=== PATIENT | female | born 2000 | race Hispanic/Latino ===

== ENCOUNTER 2019-09-20 06:37 | Day surgery (SDC) | payer MEDICAID ==
[~2019-09-20] VITALS: Ht 165.1 cm; Wt 74.8 kg
[2019-09-20] VITALS (9 sets, daily range): BP systolic 112–157; BP diastolic 62–107
[~2019-09-20 06:37] MED LIST: LISI10TA7 PO; SODIUM CHLORIDE 0.9% 1000ML 1,000 ML IV ONE
[2019-09-20] MEDS ORDERED: METH500T22 PO (07:49)
[2019-09-20] MEDS ORDERED: HYDR-3421 PO (07:49)
[2019-09-20] MEDS ORDERED: SERT25TA5 PO (07:49)
[2019-09-20] MEDS ORDERED: PROPOFOL 10 MG/ML 20ML VIAL IV ONE ×2 (08:11→08:51)
[2019-09-20] MEDS ORDERED: ESMOLOL HCL 10 MG/ML 10 ML VIAL ONE (09:10)
[2019-09-20] MEDS ORDERED: SIMETHICONE 80 MG TAB.CHEW PO SCH (10:15)
--- NOTE | 2019-09-20 10:20 | NUR ---
PATIENT C/O OF ABD PAIN TO LEFT LOWER QUADRANT, VITAL SIGNS STABLE, ADVISED DOCTOR HINTON AND DOCTOR HINTON CAME TO EVALUATE PATIENT , NEW ORDER FOR KUB ANTERIOR UPRIGHT/ AND TO ADM ONE DOSE OF SIMETHICONE 80MG PO ONCE.
== END 2019-09-20 10:34 | disposition home or self-care (01) ==
LOC: ENDO 06:37 → DAH 06:37 → ENDO 10:34
PROVIDERS: ATTEND Internal Medicine Gastroenterology
DX: K92.1 Melena (principal); K29.50 Unspecified chronic gastritis without bleeding; R12 Heartburn; I10 Essential (primary) hypertension; F41.9 Anxiety disorder, unspecified; F32.9 Major depressive disorder, single episode, unspecified; K21.9 Gastro-esophageal reflux disease without esophagitis; Z79.899 Other long term (current) drug therapy; Z98.890 Other specified postprocedural states
CPT/HCPCS: 43239; 45378; 74018; 81025; 88305; A4215; A4221; A4222; A4223; A4606; A4620; A4663; J2704 ×2; J3490; J7030